=== PATIENT | female | born 1950 | race Caucasian/White ===

== ENCOUNTER 2019-03-03 15:49 | Inpatient (IN) | payer MEDICARE ==
[~2019-03-03] VITALS: Ht 152.4 cm; Wt 62.1 kg
[2019-03-03] MEDS ORDERED: SODIUM CHLORIDE 0.9% 1,000 ML IV ONE (16:45)
[2019-03-03] MEDS ORDERED: METOCLOPRAMIDE HCL 10MG/2ML VIAL IV ONE (16:45)
[2019-03-03] MEDS ORDERED: PANTOPRAZOLE SODIUM 40 MG/VIAL IV ONE (16:45)
[2019-03-03] MEDS ORDERED: DIPHENHYDRAMINE 50MG/ML VIAL IV ONE (16:45)
[2019-03-03 16:47] LABS: CHLORIDE 98 mEq/L (98-107)
[2019-03-03 16:50] LABS: PROTHROMBIN TIME 10.2 sec (9.6-11.0)
[2019-03-03 16:51] LABS: ETHANOL BLOOD < 10 mg/dL
[2019-03-03 16:54] LABS: BASOPHILS % 0.2 % (0.0-2.0); EOSINOPHILS % 0.1 % (0.0-5.0); HEMATOCRIT. 32.3 % (36.0-48.0); LYMPHOCYTES % 8.2 % (20.0-50.0); MEAN CORPUSCULAR HEMOGLOBIN 31.3 pg (28.0-32.0); MEAN CORPUSCULAR VOLUME 91.7 fL (81.0-99.0); MONOCYTES % 8.7 % (2.0-8.0); NEUTROPHILS % 82.8 % (40.0-76.0); RED BLOOD CELL COUNT 3.52 mill/uL (4.2-5.4); RED CELL DISTRIBUTION WIDTH 14.1 % (11.6-14.6)
[2019-03-03 17:50] LABS: MEAN PLATELET VOLUME 14.2 fl (7.4-10.4); PLATELET 86 x1000/uL (130-400)
[2019-03-03] MEDS ORDERED: ZOLPIDEM TARTRATE 5MG TABLET PO PRN (20:15)
[2019-03-03] MEDS ORDERED: ONDANSETRON HCL 4MG/2ML INJ IV PRN (20:15)
[2019-03-03] MEDS ORDERED: CLONIDINE 0.1MG TABLET PO PRN (20:15)
[2019-03-03] MEDS ORDERED: DEXTROSE 50% WATER 50ML SYRINGE IV PRN (20:15)
[2019-03-03] MEDS ORDERED: CEFTRIAXONE 1 G PREMIX 50 ML IV NR (21:30)
[2019-03-03] MEDS: BLOOD SUGAR DIAGNOSTIC STRIP TEST SCH (23:25)
[2019-03-03] MEDS: INSULIN LISPRO 100 UNITS/ML SUBCUT SCH (23:25)
[2019-03-03 23:26] VITALS: BP 143/93
[2019-03-03 23:29] VITALS: BP 143/93
[2019-03-04] MEDS: CEFTRIAXONE 1 G PREMIX 50 ML IV SCH (00:29)
[2019-03-04 04:00] VITALS: BP 131/47
[2019-03-04] MEDS: ACETAMINOPHEN 325MG TABLET PO PRN ×2 (05:18→11:19)
[2019-03-04] MEDS: BLOOD SUGAR DIAGNOSTIC STRIP TEST SCH ×4 (06:15→21:00)
[2019-03-04] MEDS: INSULIN LISPRO 100 UNITS/ML SUBCUT SCH ×4 (06:15→21:00)
[2019-03-04 06:43] LABS: BASOPHILS % 0.6 % (0.0-2.0); EOSINOPHILS % 0.3 % (0.0-5.0); HEMATOCRIT. 25.4 % (36.0-48.0); HEMOGLOBIN. 8.9 g/dL (12.0-16.0); LYMPHOCYTES % 21.3 % (20.0-50.0); MEAN CORPUSCULAR VOLUME 91.7 fL (81.0-99.0); MONOCYTES % 10.2 % (2.0-8.0); NEUTROPHILS % 67.6 % (40.0-76.0); RED BLOOD CELL COUNT 2.77 mill/uL (4.2-5.4); RED CELL DISTRIBUTION WIDTH 14.1 % (11.6-14.6)
[2019-03-04 08:00] VITALS: BP 121/89
[2019-03-04] MEDS: PANTOPRAZOLE SODIUM 40 MG/VIAL IV SCH (09:43)
[2019-03-04 12:00] VITALS: BP 116/71
[2019-03-04 14:51] LABS: PLATELET 69 x1000/uL (130-400)
[2019-03-04 16:00] VITALS: BP 145/65
[2019-03-04 20:00] VITALS: BP 159/61
[2019-03-04] MEDS ORDERED: PANTOPRAZOLE SODIUM 40 MG/VIAL IV SCH (21:00)
[2019-03-04] MEDS ORDERED: EPOETIN ALFA 10000UNITS/ML VIAL SUBCUT SCH (21:00)
[2019-03-05] VITALS: BP 141/63
[2019-03-05 04:00] VITALS: BP 152/55
[2019-03-05 07:55] LABS: PARTIAL THROMBOPLASTIN TIME 34.5 sec (23.4-31.0); PROTHROMBIN TIME 10.5 sec (9.6-11.0)
[2019-03-05 08:00] VITALS: BP 146/51
[2019-03-05 08:04] LABS: BASOPHILS % 0.7 % (0.0-2.0); EOSINOPHILS % 0.8 % (0.0-5.0); HEMOGLOBIN. 8.9 g/dL (12.0-16.0); LYMPHOCYTES % 25.8 % (20.0-50.0); MEAN CORPUSCULAR HEMOGLOBIN 31.6 pg (28.0-32.0); MEAN CORPUSCULAR VOLUME 91.7 fL (81.0-99.0); MONOCYTES % 9.5 % (2.0-8.0); NEUTROPHILS % 63.2 % (40.0-76.0); RED BLOOD CELL COUNT 2.83 mill/uL (4.2-5.4); RED CELL DISTRIBUTION WIDTH 13.7 % (11.6-14.6)
[2019-03-05] MEDS ORDERED: BACTERIOSTATIC SODIUM CHLORIDE 0.9% 30ML VIAL IJ ONE (08:06)
[2019-03-05] MEDS: PANTOPRAZOLE SODIUM 40 MG/VIAL IV SCH (08:14)
[2019-03-05 08:23] LABS: CHLORIDE 104 mEq/L (98-107)
[2019-03-05 08:34] LABS: PHOSPHORUS 4.3 mg/dL (2.5-4.9)
[2019-03-05 08:42] LABS: MEAN PLATELET VOLUME 14.8 fl (7.4-10.4); PLATELET 67 x1000/uL (130-400)
[2019-03-05 12:00] VITALS: BP 175/63
[2019-03-05] MEDS: BLOOD SUGAR DIAGNOSTIC STRIP TEST SCH ×3 (12:31→20:48)
[2019-03-05] MEDS: INSULIN LISPRO 100 UNITS/ML SUBCUT SCH ×3 (12:31→20:49)
[2019-03-05] MEDS ORDERED: FENTANYL CITRATE/PF 50MCG/ML 2ML VIAL ONE (14:57)
[2019-03-05] MEDS ORDERED: MIDAZOLAM HCL 5 MG/5 ML VIAL ONE (14:57)
[2019-03-05] MEDS ORDERED: MIDAZOLAM HCL 2 MG/2 ML VIAL IV PRN (15:12)
[2019-03-05] MEDS ORDERED: FENTANYL CITRATE/PF 50MCG/ML 2ML VIAL IV PRN (15:13)
[2019-03-05 20:00] VITALS: BP 169/61
[2019-03-05] MEDS: ACETAMINOPHEN 325MG TABLET PO PRN (20:48)
[2019-03-06] VITALS: BP 166/55
[2019-03-06] MEDS: CEFTRIAXONE 1 G PREMIX 50 ML IV SCH ×2 (01:19→01:22)
[2019-03-06 04:00] VITALS: BP 158/111
[2019-03-06] MEDS: BLOOD SUGAR DIAGNOSTIC STRIP TEST SCH ×2 (06:14→12:15)
[2019-03-06] MEDS: INSULIN LISPRO 100 UNITS/ML SUBCUT SCH ×2 (06:14→12:28)
[2019-03-06] MEDS ORDERED: OMEPRAZOLE 20MG CAPSULE EXTENDED RELEASE PO SCH (07:10)
[2019-03-06 08:00] VITALS: BP 169/62
[2019-03-06 09:34] LABS: BASOPHILS % 0.9 % (0.0-2.0); EOSINOPHILS % 2.2 % (0.0-5.0); HEMATOCRIT. 27.8 % (36.0-48.0); HEMOGLOBIN. 9.6 g/dL (12.0-16.0); LYMPHOCYTES % 34.2 % (20.0-50.0); MEAN CORPUSCULAR HEMOGLOBIN 31.5 pg (28.0-32.0); MEAN CORPUSCULAR VOLUME 91.7 fL (81.0-99.0); MONOCYTES % 11.6 % (2.0-8.0); NEUTROPHILS % 51.1 % (40.0-76.0); RED BLOOD CELL COUNT 3.03 mill/uL (4.2-5.4); RED CELL DISTRIBUTION WIDTH 13.7 % (11.6-14.6)
[2019-03-06] MEDS ORDERED: AMLODIPINE 5MG TABLET PO SCH (09:45)
[2019-03-06 10:17] LABS: PHOSPHORUS 4.1 mg/dL (2.5-4.9)
[2019-03-06 10:30] LABS: MEAN PLATELET VOLUME 14.7 fl (7.4-10.4); PLATELET 72 x1000/uL (130-400)
[2019-03-06 12:00] VITALS: BP 146/74
[2019-03-06 13:17] VITALS: BP 146/74
== END 2019-03-06 14:56 | disposition home or self-care (01) | DRG 241 ==
LOC: ER 16:32 → EDBEDREQ 18:50 → 8WST 19:08 → EDBEDREQ 19:15 → ENRESERV 21:45
PROVIDERS: ADMIT Internal Medicine; ATTEND Internal Medicine
PROC: 5A1D70Z Performance of Urinary Filtration, Intermittent, Less than 6 Hours Per Day (ICD-10-PCS; 2019-03-04)
PROC: 0DJ08ZZ Inspection of Upper Intestinal Tract, Via Natural or Artificial Opening Endoscopic (ICD-10-PCS; principal; 2019-03-05)
PROC: 5A1D70Z Performance of Urinary Filtration, Intermittent, Less than 6 Hours Per Day (ICD-10-PCS; 2019-03-06)
DX: K29.61 Other gastritis with bleeding (principal); E11.22 Type 2 diabetes mellitus with diabetic chronic kidney disease; D69.6 Thrombocytopenia, unspecified; I13.11 Hypertensive heart and chronic kidney disease without heart failure, with stage 5 chronic kidney disease, or end stage renal disease; N18.6 End stage renal disease; J44.9 Chronic obstructive pulmonary disease, unspecified; D64.9 Anemia, unspecified; K44.9 Diaphragmatic hernia without obstruction or gangrene; K22.6 Gastro-esophageal laceration-hemorrhage syndrome; D72.829 Elevated white blood cell count, unspecified; Z99.2 Dependence on renal dialysis; Z83.3 Family history of diabetes mellitus; Z82.49 Family history of ischemic heart disease and other diseases of the circulatory system; Z79.84 Long term (current) use of oral hypoglycemic drugs
CPT/HCPCS: 36415; 71045; 80048; 80320; 82962; 83735; 84100; 84145; 86850; 86900; 88305; 93970; 96374; 99285; C9113; J0696; J0885; J1200; J1815; J2250; J2765; J3010; J3490; J7030; G0480